=== PATIENT | female | born 1960 | race Caucasian/White ===

== ENCOUNTER 2019-04-24 10:49 | Observation (INO) ==
[2019-04-24 11:12] LABS: Bilirubin,Urine Negative (Negative); Blood,Urine Trace (Negative); Clarity,Urine Cloudy (Clear); Color,Urine Yellow (Yellow); Glucose,Urine (UA) 100 mg/dL (Normal); Ketones,Urine Trace mg/dL (Negative); Leukocyte Esterase,Urine Moderate (Negative); Nitrite,Urine Negative (Negative); Protein,Urine 30 mg/dL (Neg-Trace); Specific Gravity,Urine 1.027 (1.010-1.025); Urobilinogen,Urine Normal (Normal)
[2019-04-24 11:14] LABS: Squamous Epithelial Cell,Urine Many per lpf (None-Few)
[2019-04-24] MEDS ORDERED: Ibuprofen 600 MG TABLET PO ONE (11:23)
[2019-04-24 11:39] LABS: Renal Epithelial Cells,Urine Few per hpf (None-Few); White Blood Cell Casts,Urine Moderate per lpf (None Seen)
[2019-04-24 11:40] LABS: Hyaline Casts,Urine Few per lpf (None-Few)
[2019-04-24 11:41] LABS: Bacteria,Urine Many per hpf (None-Few)
[2019-04-24 12:51] LABS: Basophils % 0.2 %; Eosinophils # 0.2 K/mcL (0.0-0.6); Eosinophils % 1.9 %; Hematocrit 36.8 % (35.3-44.9); Hemoglobin 11.6 g/dL (11.5-15.4); Immature Granulocytes % 0.6 % (0-4); Lymphocytes # 1.3 K/mcL (0.6-4.6); Lymphocytes % 13.9 %; Mean Corpuscular HGB Conc 31.5 g/dL (31.6-35.5); Mean Corpuscular Hemoglobin 26.3 pg (28.0-33.3); Mean Corpuscular Volume 83.4 fL (83.0-100.0); Mean Platelet Volume 8.7 fL (9.4-12.4); Monocytes # 0.4 K/mcL (0.0-1.3); Monocytes % 4.1 %; Neutrophils # 7.1 K/mcL (1.6-8.9); Platelet Count 297 K/mcL (140-400); Red Blood Count 4.41 M/mcL (3.82-4.97); Red Cell Distribution Width 13.4 % (11.5-14.5); Segmented Neutrophils % 79.3 %
[2019-04-24 13:06] LABS: BUN/Creatinine Ratio 19 (6-26); Blood Urea Nitrogen 19 mg/dL (6-20); Calcium 8.9 mg/dL (8.6-10.3); Carbon Dioxide 22 mEq/L (23-29); Chloride 105 mEq/L (98-107); Glucose 240 mg/dL (70-105); Osmolality,Calculated 298 (280-300); Potassium 3.9 mEq/L (3.5-5.1); Sodium 139 mEq/L (136-145); eGFR For African Americans > 60 (> 60); eGFR For Non-African Americans 56 (> 60)
[2019-04-24] MEDS ORDERED: Piperacillin/Tazobactam 3.375 GM in 0.9 % Sodium Chloride Mini Bag 100 ML IVPB ONE (13:25)
[2019-04-24] MEDS ORDERED: Fluconazole 400 MG/200 ML 400 MG/200 ML BAG IVPB STA (13:25)
[2019-04-24] MEDS ORDERED: valACYclovir 500 MG TABLET PO ONE (13:26)
[2019-04-24] MEDS ORDERED: Morphine Sulfate Immed Rel 30 MG TABLET PO STA (13:28)
[2019-04-24] MEDS ORDERED: Naloxone 0.4 MG/ML INJ IVP PRN (13:50)
[2019-04-24] MEDS ORDERED: Ondansetron 4 MG/2 ML VIAL IVP PRN (13:50)
[2019-04-24] MEDS ORDERED: *HR* Dextrose 50 % in Water (Syg) 50 ML SYRINGE IVP PRN (13:59)
[2019-04-24] MEDS ORDERED: Acetaminophen 325 MG TABLET PO PRN (13:59)
[2019-04-24] MEDS ORDERED: Dextrose Gel 15 GM/37.5 ML TUBE PO PRN ×2 (13:59)
[2019-04-24] MEDS ORDERED: D5% in Water 1,000 ML IVC PRN (13:59)
[2019-04-24] MEDS ORDERED: *HR* Labetalol 20 MG/4 ML SYRINGE IVP PRN (14:07)
[2019-04-24] MEDS: Insulin LISPRO 300 UNITS/3 ML VIAL SQ SCH ×2 (17:06→20:25)
[2019-04-24] MEDS: Insulin DETEMIR 100 UNIT/ML X5UNITS SQ SCH (20:36)
[2019-04-24] MEDS: cefTRIAXone 1,000 MG in Water for inj. (sterile) 10 ML IVP SCH (20:36)
[2019-04-24] MEDS ORDERED: Insulin DETEMIR 100 UNIT/ML X5UNITS SQ SCH (21:00)
[2019-04-24] MEDS: *HR* HYDROcodone/Acet 5/325 mg TABLET PO PRN (21:29)
[2019-04-24] MEDS: *HR* Heparin 5,000 UNIT/ML VIAL SQ SCH (21:30)
[2019-04-25] MEDS: *HR* HYDROcodone/Acet 5/325 mg TABLET PO PRN ×2 (05:07→17:34)
[2019-04-25] MEDS: *HR* Heparin 5,000 UNIT/ML VIAL SQ SCH ×3 (05:07→21:41)
[2019-04-25 05:42] LABS: Basophils % 0.2 %; Eosinophils # 0.3 K/mcL (0.0-0.6); Eosinophils % 3.6 %; Hematocrit 35.6 % (35.3-44.9); Immature Granulocytes % 0.6 % (0-4); Lymphocytes # 1.5 K/mcL (0.6-4.6); Lymphocytes % 17.9 %; Mean Corpuscular HGB Conc 30.9 g/dL (31.6-35.5); Mean Corpuscular Hemoglobin 26.1 pg (28.0-33.3); Mean Corpuscular Volume 84.4 fL (83.0-100.0); Mean Platelet Volume 8.8 fL (9.4-12.4); Monocytes # 0.4 K/mcL (0.0-1.3); Neutrophils # 6.1 K/mcL (1.6-8.9); Platelet Count 295 K/mcL (140-400); Red Blood Count 4.22 M/mcL (3.82-4.97); Red Cell Distribution Width 13.6 % (11.5-14.5); Segmented Neutrophils % 72.7 %; White Blood Count 8.3 K/mcL (4.3-11.1)
[2019-04-25 05:51] LABS: Blood Urea Nitrogen 21 mg/dL (6-20); Calcium 8.6 mg/dL (8.6-10.3); Carbon Dioxide 25 mEq/L (23-29); Chloride 106 mEq/L (98-107); Glucose 198 mg/dL (70-105); Magnesium 1.7 mg/dL (1.6-2.6); Osmolality,Calculated 299 (280-300); Potassium 3.7 mEq/L (3.5-5.1); Sodium 140 mEq/L (136-145)
[2019-04-25 06:06] LABS: BUN/Creatinine Ratio 21 (6-26); eGFR For African Americans > 60 (> 60); eGFR For Non-African Americans 57 (> 60)
[2019-04-25] MEDS: Insulin LISPRO 300 UNITS/3 ML VIAL SQ SCH ×5 (08:29→20:36)
[2019-04-25] MEDS: Insulin DETEMIR 100 UNIT/ML X5UNITS SQ SCH ×2 (08:29→20:02)
[2019-04-25] MEDS: cefTRIAXone 1,000 MG in Water for inj. (sterile) 10 ML IVP SCH (08:31)
[2019-04-25] MEDS: Nystatin POWDER 30 GM BOTTLE TP SCH ×2 (17:26→21:41)
[2019-04-25 17:44] LABS: Hematocrit 35.2 % (35.3-44.9); Hemoglobin 11.3 g/dL (11.5-15.4); Mean Corpuscular HGB Conc 32.1 g/dL (31.6-35.5); Mean Corpuscular Hemoglobin 26.7 pg (28.0-33.3); Mean Platelet Volume 8.6 fL (9.4-12.4); Platelet Count 299 K/mcL (140-400); Red Blood Count 4.24 M/mcL (3.82-4.97); Red Cell Distribution Width 13.4 % (11.5-14.5)
[2019-04-25] MEDS ORDERED: *HR* Promethazine 25 MG/ML VIAL IVP ONE (18:38)
[2019-04-26] MEDS: *HR* Heparin 5,000 UNIT/ML VIAL SQ SCH ×3 (05:35→20:54)
[2019-04-26 07:06] LABS: BUN/Creatinine Ratio 21 (6-26); Blood Urea Nitrogen 18 mg/dL (6-20); Calcium 8.5 mg/dL (8.6-10.3); Carbon Dioxide 27 mEq/L (23-29); Chloride 102 mEq/L (98-107); Glucose 299 mg/dL (70-105); Osmolality,Calculated 301 (280-300); Potassium 3.6 mEq/L (3.5-5.1); Sodium 139 mEq/L (136-145); eGFR For African Americans > 60 (> 60); eGFR For Non-African Americans > 60 (> 60)
[2019-04-26] MEDS: Insulin LISPRO 300 UNITS/3 ML VIAL SQ SCH ×7 (08:30→17:52)
[2019-04-26] MEDS: cefTRIAXone 1,000 MG in Water for inj. (sterile) 10 ML IVP SCH (08:32)
[2019-04-26] MEDS: Insulin DETEMIR 100 UNIT/ML X5UNITS SQ SCH ×2 (08:40→20:55)
[2019-04-26] MEDS: Nystatin POWDER 30 GM BOTTLE TP SCH ×2 (12:03→20:56)
[2019-04-26] MEDS ORDERED: *HR* Dextrose 50 % in Water (Syg) 50 ML SYRINGE IVP PRN (17:31)
[2019-04-26] MEDS ORDERED: D5% in Water 1,000 ML IVC PRN (17:31)
[2019-04-26] MEDS ORDERED: Dextrose Gel 15 GM/37.5 ML TUBE PO PRN ×2 (17:31)
[2019-04-26] MEDS ORDERED: Insulin LISPRO 300 UNITS/3 ML VIAL SQ SCH (21:00)
[2019-04-27 06:25] VITALS: BP 133/82
[2019-04-27] MEDS: *HR* Heparin 5,000 UNIT/ML VIAL SQ SCH (06:25)
[2019-04-27] MEDS: *HR* HYDROcodone/Acet 5/325 mg TABLET PO PRN (06:33)
[2019-04-27] MEDS: cefTRIAXone 1,000 MG in Water for inj. (sterile) 10 ML IVP SCH (08:32)
[2019-04-27] MEDS: Insulin DETEMIR 100 UNIT/ML X5UNITS SQ SCH (08:37)
[2019-04-27] MEDS: Nystatin POWDER 30 GM BOTTLE TP SCH (08:38)
[2019-04-27] MEDS: Insulin LISPRO 300 UNITS/3 ML VIAL SQ SCH ×2 (08:38)
== END 2019-04-27 11:13 | disposition home or self-care (01) ==
LOC: 3ANU 10:49 → EMEROOARM 10:49 → SUATTDRO 15:45 → 3ANU 15:53
PROVIDERS: ADMIT Internal Medicine; ATTEND Internal Medicine